=== PATIENT | male | born 1995 | race Caucasian/White ===

== ENCOUNTER 2017-09-16 18:56 | Emergency (ER) | payer OTHER ==
[2017-09-16 19:16] VITALS: BP 110/64
[2017-09-16] MEDS ORDERED: Lidocaine 1% MPF* 2 ML VIAL INJ ONE (19:50)
[2017-09-16] MEDS ORDERED: Acetaminophen TAB* 325 MG PO PRN (19:52)
--- NOTE | 2017-09-16 19:58 | UC ---
Laceration HPI - HPI Summary HPI Summary: While playing hockey his hand was stepped upon by another player with an ice skate. Cut is on left hand 4th finger medial aspect. C/o pain, bleeding was controlled with compression on site after incident. - History Of Current Complaint Chief Complaint: UCLaceration Stated Complaint: LACS LEFT FINGER Time Seen by Provider: 09/16/17 19:38 - Allergies/Home Medications Allergies/Adverse Reactions: Allergies Allergy/AdvReac Type Severity Reaction Status Date / Time No Known Allergies Allergy Verified 09/16/17 19:09 PMH/Surg Hx/FS Hx/Imm Hx Previously Healthy: Yes Psychological History: Other - ADHD Other Psychological History: ADHD - Surgical History Surgical History: Yes Surgery Procedure, Year, and Place: APPY 2008, Left Shoulder Glenoid Labrum. 2016 L4-L5 ruptured disc - Family History Known Family History: Positive: Other - Alcoholism - Social History Alcohol Use: Rare Substance Use Type: None Substance Use Comment - Amount & Last Used: valium/percocet Smoking Status (MU): Never Smoked Tobacco Have You Smoked in the Last Year: No - Immunization History Most Recent Influenza Vaccination: 2014 Most Recent Tetanus Shot: 2016 Most Recent Pneumonia Vaccination: never Review of Systems Constitutional: Negative Musculoskeletal: Other: - laceration All Other Systems Reviewed And Are Negative: Yes Physical Exam Triage Information Reviewed: Yes Appearance: Well-Appearing Vital Signs: Initial Vital Signs Temp 98.6 F 09/16/17 19:11 Pulse 88 09/16/17 19:11 Resp 16 09/16/17 19:11 BP 110/64 09/16/17 19:11 Pulse Ox 98 09/16/17 19:11 Vital Signs Reviewed: Yes Musculoskeletal: Positive: Other: - spiral laceration approximately 4cm in length on medial aspect of 4th left finger. No active bleeding, capillary refill less 2sec, no surrounding soft tissue swelling, flexion of finger FROM Laceration Repair - Laceration Repair 1 Description: Linear - 5 sutures applied along laceration with vycril #4, bleeding was controlled, patient tolerated procedure well Laceration Size After Repair: Length (cm) - 4 Type Injection: Digital Anesthesia Used: 1.0% Lido Cleansing Completed Via Routine Prep: Yes Irrigation With Pressure Irrigation Device: No Closure Material: Sutures Closure Method: Single Layer Suture Of: Skin, SQ Suture Type: Vicryl Laceration Course/Dx - Course/Dx Course Of Treatment: laceration repair done - Differential Dx - Laceration/Wound Provider Diagnoses: Laceration 4th finger left hand Discharge - Discharge Plan Condition: Stable Disposition: HOME Patient Education Materials: Care For Your Stitches (ED), Finger Laceration (ED ) Referrals: No Primary Care Phys,NOPCP [Primary Care Provider] - Images Hands: 1 - laceration
[2017-09-16] MEDS ORDERED: Acetaminophen TAB* 325 MG ONE (20:00)
[2017-09-17] MEDS ORDERED: Bacitracin OINTMENT* 1 TUBE TOPICAL SCH (09:00)
== END 2017-09-16 21:05 | disposition home or self-care (01) ==
LOC: UCEAST 18:56
DX: S61.215A Laceration without foreign body of left ring finger without damage to nail, initial encounter (principal); W21.32XA Struck by skate blades, initial encounter; Y92.9 Unspecified place or not applicable; Y93.22 Activity, ice hockey
CPT/HCPCS: 12002; 99212; A9270-GY; G0463